=== PATIENT | male | born 1980 | race Caucasian/White ===

== ENCOUNTER 2024-12-21 01:12 | Day surgery (SDC) | payer BC, SELFPAY ==
[2024-12-11 15:02] VITALS: BMI 35.4
--- OUTSIDE RECORDS SUMMARY | 2024-12-21 01:15 | XMS_ITS | Clinical Summary ---
Author Organization [facility] [employer] Address [address] [place] [address] Care Team Providers Care Physical Laboratory Assistant Name Role Phone Luis Vance MD Primary Care Provider [phone] Source Comments [facility],non-owned Affiliates and Associated Physician Practices is amultiple site organization consisting of ambulatory clinics and hospital sitesin [place] and [place]. This disclosure is being madepursuant to the Care Everywhere program and may not contain all information available regarding this patient. Last updated 18.[facility] [employer] Allergies No known active allergies Medications * Be aware that medications may not be up to date on this document. Alwaysverify current medications with the patient. No known medications Active Problems No known active problems Family History Medical History Relation Name Comments Cancer - Other Father ADHD Neg Hx Allergies Neg Hx Aneurysm Neg Hx Asthma Neg Hx Autoimmune Disease Neg Hx Bipolar Disorder Neg Hx CVA<55(male) Neg Hx CVA<65(female) Neg Hx Cancer - Breast Neg Hx Cancer - Colon Neg Hx Cancer - Ovarian Neg Hx Cancer - Pancreatic Neg Hx Cancer - Prostate Neg Hx Childhood Hearing Disorder Neg Hx Clotting Disorder Neg Hx Depression Neg Hx Diabetes Neg Hx Eczema Neg Hx Genetic Neg Hx Heart defect Neg Hx Hypercholesterolemia Neg Hx Hypertension Neg Hx DE<55(male) Neg Hx DE<65(female) Neg Hx Mental Health Neg Hx Migraine Neg Hx Osteoporosis Neg Hx Seizures Neg Hx Sudd. <30 Neg Hx Thyroid Disease Neg Hx Ulcerative Colitis Neg Hx Relation Name Status Comments Father Social History Tobacco Use Types Packs/Day Years Used Date Smoking Tobacco: Never Sex and Gender Information Value Date Recorded Sex Assigned at Not on file Legal Sex Male 11:12 AM CDT Gender Identity Not on file Sexual Orientation Not on file Last Filed Vital Signs Vital Sign Reading Time Taken Comments Blood Pressure 110/72 02/22/2018 6:09 PM CDT Pulse 70 02/22/2018 6:09 PM CDT Temperature 36.7 C (98 F) 02/22/2018 6:09 PM CDT Respiratory Rate 20 02/22/2018 6:09 PM CDT Oxygen Saturation 98% 05/18/2016 11:59 AM CDT Inhaled Oxygen Concentration - - Weight 88.9 kg (196 lb) 02/22/2018 6:09 PM CDT Height 175.3 cm (5' 9) 05/18/2016 11:59 AM CDT Body Mass Index 28.94 05/18/2016 11:59 AM CDT Plan of Treatment Health Maintenance Due Date Last Done Comments COLOGUARD (AGES 45-75) - COL ON CA SCREENING 1979 COLON MONITORING 1979 COLONOSCOPY - COLON CA SCREENING 1979 CT COLONOGRAPHY - COLON CA SCREENING 1979 Colorectal Cancer Screening 1979 FIT - COLON CA SCREENING 1979 FLEX SIG - COLON CA SCREENING 1979 LIPID TESTING 1979 HIV SCREENING 1994 HEPATITIS C SCREENING 08/13/1997 DTAP/TDAP/TD VACCINES (1 - Tdap) 1998 HEPATITIS B VACCINE (1 of 3 - 19+ 3-dose series) 1998 COVID-19 VACCINE ( - 2023-2 5 season) 2024 DEPRESSION SCREENING 07/18/2024 INFLUENZA VACCINE (Season Ended) 2025 ZOSTER VACCINE (1 of 2) 2029 HIB VACCINE Aged Out No longer eligi ble based on patient's age to complete this topic HPV VACCINE Aged Out No longer eligi ble based on patient's age to complete this topic MENINGOCOCCAL (Group B) VACC INE SHARED DECISION-MAKING Aged Out No longer eligibl e based on patient's age to complete this topic MENINGOCOCCAL GROUPS A/C/Y/W VACCINE Aged Out No longer eligible b ased on patient's age to complete this topic PNEUMOCOCCAL VACCINE Aged Out No long er eligible based on patient's age to complete this topic Insurance [address] [place], [place] [id number] [place] [address] Care Teams Physical Laboratory Assistant Relationship Specialty Start Date End Date Luis Vance MD [address] [place] [id number] PCP - General Family Medicine 05/18/16
--- OUTSIDE RECORDS SUMMARY | 2024-12-21 01:15 | XMS_ITS | Data Portability ---
Author Organization [place] [facility], Main Office Address [address] [place] [address] Assessment No assessment recorded. Plan of Treatment Reminders Order Date Submit Date Provider Last Modified By Organization Details Last Modified Time Details Appointments None recorded. Lab CBC w/ auto diff 2022 023 [facility], [address], [place], [address], 3 03:00:59 PT/PTT, plasma 2022 023 [facility], [address], [place], [address], 3 03:00:53 CMP, serum or plasma 2022 023 [facility], [address], [place], [address], 3 03:00:57 TSH + free T4, serum 2022 023 [facility], [address], [place], [address], 3 03:00:56 lipid panel, serum 2022 023 [facility], [address], [place], [address], 3 03:00:56 PSA, serum or plasma 2022 023 [facility], [address], [place], [address], 3 03:01:00 testosteron e, total, serum 2022 023 [facility], [address], [place], [address], 3 03:01:00 HbA1c (hemoglobin A1c), blood 2022 023 [facility], [address], [place], [address], 3 03:00:58 Referral None recorded. Procedures None recorded. Surgeries None recorded. Imaging None recorded. Medication Orders phentermine 30 mg capsule 2022 023 [id number], [address], [place], [place], [id number], 3 12:09:51 topiramate 25 mg tablet 2022 023 [id number], [address], [place], [place], [id number], 3 12:09:53 phentermine 30 mg capsule 2022 023 [facility] #[id number], [address], [place], [place], [id number], 3 12:09:51 topiramate 25 mg tablet 2022 023 [facility] #[id number], [address], [place], [place], [id number], 3 12:09:53 Patient TargetsNo targets recorded. Patient InstructionsNo instructions recorded. Reason for Referral None Reported. Results Created Date Observation Date Name Description Value Unit Range Abnormal Flag Note LastModifiedBy Organization Detail LastModifiedTime 04/28/20 22 04/29/2022 PSA, TOTAL PSA, total 0.55 NG/mL < or = 4.00 normal The total PSA value from this assay syste m is stand ardiz ed again st the WHO stand kenneth. The test resul t will be appro ximat pamela 20% lower when cosmo red to the equim olar- stand ardiz ed total PSA (Crouch man Coult er). Cosmo rison of seria l PSA resul ts shoul d be inter prete d with this fact in mind. This test was perfo rmed using the Sieme ns chemi lumin escen t metho d. Value s obtai mary jane from diffe rent assay metho ds canno t be used inter benson eably . PSA level s, regar dless of value , shoul d not be inter prete d as absol poarch evide nce of the prese nce or absen ce of disea se. Not Available [address], [address], 04/29/2022 07:08:02 04/28/2004/29/2022 TESTO STERO NE, TOTAL , MALES (ADUL T), IA testosterone , total, males (adult), ia 653 NG/dL 250-82 7 normal Not Available [address], [address], 04/29/2022 07:08:01 04/28/20 22 04/29/2022 REFLE XIVE URINE CULTU RE reflexive urine culture NO CULTU RE INDIC ATED Not Available [address], [address], 04/29/2022 07:08:01 04/28/2004/29/2022 URINA LYSIS , COMPL ETE W/REF NOVA TO CULTU RE color yellow yellow normal Not Available [address], [address], 04/29/2022 07:08:00 04/28/20 22 04/29/2022 URINA LYSIS , COMPL ETE W/REF NOVA TO CULTU RE appearance clear clear normal Not Available [address], [address], 04/29/2022 07:08:00 04/28/2004/29/2022 URINA LYSIS , COMPL ETE W/REF NOVA TO CULTU RE specific gravity 1.023 1.001- 1.035 normal Not Available [address], [address], 04/29/2022 07:08:00 04/28/2004/29/2022 URINA LYSIS , COMPL ETE W/REF NOVA TO CULTU RE pH 7.0 5.0-8. 0 normal Not Available [address], [address], 04/29/2022 07:08:00 04/28/2004/29/2022 URINA LYSIS , COMPL ETE W/REF NOVA TO CULTU RE glucose negati ve negati ve normal Not Available [address], [address], 04/29/2022 07:08:00 04/28/2004/29/2022 URINA LYSIS , COMPL ETE W/REF NOVA TO CULTU RE bilirubin negati ve negati ve normal Not Available [address], [address], 04/29/2022 07:08:00 04/28/2004/29/2022 URINA LYSIS , COMPL ETE W/REF NOVA TO CULTU RE ketones negati ve negati ve normal Not Available [address], [address], 04/29/2022 07:08:00 04/28/2004/29/2022 URINA LYSIS , COMPL ETE W/REF NOVA TO CULTU RE occult blood negati ve negati ve normal Not Available [address], [address], 04/29/2022 07:08:00 04/28/20 22 04/29/2022 URINA LYSIS , COMPL ETE W/REF NOVA TO CULTU RE protein trace negati ve abnormal Not Available [address], [address], 04/29/2022 07:08:00 04/28/20 22 04/29/2022 URINA LYSIS , COMPL ETE W/REF NOVA TO CULTU RE nitrite negati ve negati ve normal Not Available [address], [address], 04/29/2022 07:08:00 04/28/2004/29/2022 URINA LYSIS , COMPL ETE W/REF NOVA TO CULTU RE leukocyte esterase negati ve negati ve normal Not Available [address], [address], 04/29/2022 07:08:00 04/28/2004/29/2022 URINA LYSIS , COMPL ETE W/REF NOVA TO CULTU RE WBC none seen /hpf < or = 5 normal Not Available [address], [address], 04/29/2022 07:08:00 04/28/2004/29/2022 URINA LYSIS , COMPL ETE W/REF NOVA TO CULTU RE RBC none seen /hpf < or = 2 normal Not Available [address], [address], 04/29/2022 07:08:00 04/28/2004/29/2022 URINA LYSIS , COMPL ETE W/REF NOVA TO CULTU RE squamous epithelial cells none seen /hpf < or = 5 normal Not Available [address], [address], 04/29/2022 07:08:00 04/28/2004/29/2022 URINA LYSIS , COMPL ETE W/REF NOVA TO CULTU RE bacteria none seen /hpf none seen normal Not Available [address], [address], 04/29/2022 07:08:00 04/28/2004/29/2022 URINA LYSIS , COMPL ETE W/REF NOVA TO CULTU RE hyaline cast none seen /lpf none seen normal Not Available [address], [address], 04/29/2022 07:08:00 04/28/2004/29/2022 CBC (INCL UDES DIFF/ PLT) white blood cell count 4.7 thous and/u L 3.8-10 .8 normal Not Available [address], [address], 04/29/2022 07:07:59 04/28/2004/29/2022 CBC (INCL UDES DIFF/ PLT) red blood cell count 5.41 presley on/uL 4.20-5 .80 normal Not Available [address], [address], 04/29/2022 07:07:59 04/28/2004/29/2022 CBC (INCL UDES DIFF/ PLT) hemoglobin 16.5 g/dL 13.2-1 7.1 normal Not Available [address], [address], 04/29/2022 07:07:59 04/28/2004/29/2022 CBC (INCL UDES DIFF/ PLT) hematocrit 47.6 % 38.5-5 0.0 normal Not Available [address], [address], 04/29/2022 07:07:59 04/28/2004/29/2022 CBC (INCL UDES DIFF/ PLT) MCV 88.0 fL 80.0-1 00.0 normal Not Available [address], [address], 04/29/2022 07:07:59 04/28/2004/29/2022 CBC (INCL UDES DIFF/ PLT) MCH 30.5 pg 27.0-3 3.0 normal Not Available [address], [address], 04/29/2022 07:07:59 04/28/2004/29/2022 CBC (INCL UDES DIFF/ PLT) MCHC 34.7 g/dL 32.0-3 6.0 normal Not Available [address], [address], 04/29/2022 07:07:59 04/28/2004/29/2022 CBC (INCL UDES DIFF/ PLT) RDW 13.1 % 11.0-1 5.0 normal Not Available [address], [address], 04/29/2022 07:07:59 04/28/2004/29/2022 CBC (INCL UDES DIFF/ PLT) platelet count 223 thous and/u L 140-40 0 normal Not Available [address], [address], 04/29/2022 07:07:59 04/28/2004/29/2022 CBC (INCL UDES DIFF/ PLT) MPV 10.7 fL 7.5-12 .5 normal Not Available [address], [address], 04/29/2022 07:07:59 04/28/2004/29/2022 CBC (INCL UDES DIFF/ PLT) absolute neutrophils 2200 cells /uL 1500-7 800 normal Not Available [address], [address], 04/29/2022 07:07:59 04/28/2004/29/2022 CBC (INCL UDES DIFF/ PLT) absolute lymphocytes 1739 cells /uL 850-39 00 normal Not Available [address] [place], [address], 04/29/2022 07:07:59 04/28/2004/29/2022 CBC (INCL UDES DIFF/ PLT) absolute monocytes 470 cells /uL 200-95 0 normal Not Available [address], [address], 04/29/2022 07:07:59 04/28/2004/29/2022 CBC (INCL UDES DIFF/ PLT) absolute eosinophils 240 cells /uL 15-500 normal Not Available [address] [address] [place], [address], 04/29/2022 07:07:59 04/28/2004/29/2022 CBC (INCL UDES DIFF/ PLT) absolute basophils 52 cells /uL 0-200 normal Not Available [address], [address], 04/29/2022 07:07:59 04/28/2004/29/2022 CBC (INCL UDES DIFF/ PLT) neutrophils 46.8 % normal Not Available [address], [address], 04/29/2022 07:07:59 04/28/2004/29/2022 CBC (INCL UDES DIFF/ PLT) lymphocytes 37.0 % normal Not Available [facility] [address] [address] [place], [address], 04/29/2022 07:07:59 04/28/2004/29/2022 CBC (INCL UDES DIFF/ PLT) monocytes 10.0 % normal Not Available [facility] [address] [address] [place], [address], 04/29/2022 07:07:59 04/28/2004/29/2022 CBC (INCL UDES DIFF/ PLT) eosinophils 5.1 % normal Not Available [facility] [address] [address] [place], [address], 04/29/2022 07:07:59 04/28/20 22 04/29/2022 CBC (INCL UDES DIFF/ PLT) basophils 1.1 % normal Not Available [facility] [address] [address] [place], [address], 04/29/2022 07:07:59 04/28/2004/29/2022 HEMOG LOBIN A1C hemoglobin A1C 5.0 %_of_ total _HGB <5.7 normal For the purpo se of screartie willett for the prese nce of diabe danny: <5.7% Consi stent with the absen ce of diabe danny 5.7-6 .4% Consi stent with incre ased risk for diabe danny (pred iabet es) > or =6.5% Consi stent with diabe danny This assay resul t is consi stent with a decre ased risk of diabe danny. Curre ntly, no conse nsus exist s regar helen use of hemog lobin A1c for diagn osis of diabe danny in child lewis. Accor ding to Ameri can Diabe danny Assoc iatio n (ADA) guide lines , hemog lobin A1c <7.0% repre sents optim al contr ol in non-p regna nt diabe tic patie nts. Diffe rent metri cs may apply to speci fic patie nt popul ation s. Stand ards of Medic al Care in Diabe danny(A DA). Not Available [facility] [address] [place], [address], 04/29/2022 07:07:59 04/28/2004/29/2022 COMPR EHENS GEETA METAB OLIC PANEL glucose 79 mg/dL 65-99 normal Fasti ng refer ence inter rima Not Available [facility] [address] [place], [address], 04/29/2022 07:07:58 04/28/20 22 04/29/2022 COMPR EHENS GEETA METAB OLIC PANEL urea nitrogen (BUN) 15 mg/dL 7-25 normal Not Available [address], [address], 04/29/2022 07:07:58 04/28/20 22 04/29/2022 COMPR EHENS GEETA METAB OLIC PANEL creatinine 1.14 mg/dL 0.60-1 .29 normal Not Available [address], [address], 04/29/2022 07:07:58 04/28/2004/29/2022 COMPR EHENS GEETA METAB OLIC PANEL eGFR 82 mL/mi n/1.7 3m2 > or = 60 normal The eGFR is based on the CKD-E PI 2020 equat ion. To calcu late the new eGFR from a previ ous Creat inine or Cysta tin C resul t, go to https ://santi [email or web address] [email or web address] daniel/fernanda carr s/ kdoqi /gfr% 5Fcal culat or Not Available [address], [address], 04/29/2022 07:07:58 04/28/20 22 04/29/2022 COMPR EHENS GEETA METAB OLIC PANEL BUN/creatini ne ratio not applic able (calc ) 6-22 Not Available [address], [address], 04/29/2022 07:07:58 04/28/2004/29/2022 COMPR EHENS GEETA METAB OLIC PANEL sodium 137 mmol/ L 135-14 6 normal Not Available [address], [address], 04/29/2022 07:07:58 04/28/20 22 04/29/2022 COMPR EHENS GEETA METAB OLIC PANEL potassium 4.4 mmol/ L 3.5-5. 3 normal Not Available [address] [address] [place], [address], 04/29/2022 07:07:58 04/28/2004/29/2022 COMPR EHENS GEETA METAB OLIC PANEL chloride 102 mmol/ L 98-110 normal Not Available [address], [address], 04/29/2022 07:07:58 04/28/2004/29/2022 COMPR EHENS GEETA METAB OLIC PANEL carbon dioxide 29 mmol/ L 20-32 normal Not Available [address], [address], 04/29/2022 07:07:58 04/28/2004/29/2022 COMPR EHENS GEETA METAB OLIC PANEL calcium 9.4 mg/dL 8.6-10 .3 normal Not Available [address], [address], 04/29/2022 07:07:58 04/28/2004/29/2022 COMPR EHENS GEETA METAB OLIC PANEL protein, total 7.3 g/dL 6.1-8. 1 normal Not Available [address], [address], 04/29/2022 07:07:58 04/28/2004/29/2022 COMPR EHENS GEETA METAB OLIC PANEL albumin 4.6 g/dL 3.6-5. 1 normal Not Available [address] [place], [address], 04/29/2022 07:07:58 04/28/2004/29/2022 COMPR EHENS GEETA METAB OLIC PANEL globulin 2.7 g/dL_ (calc ) 1.9-3. 7 normal Not Available [address] [place], [address], 04/29/2022 07:07:58 04/28/20 22 04/29/2022 COMPR EHENS GEETA METAB OLIC PANEL albumin/glob ulin ratio 1.7 (calc ) 1.0-2. 5 normal Not Available [address], [address], 04/29/2022 07:07:58 04/28/20 22 04/29/2022 COMPR EHENS GEETA METAB OLIC PANEL bilirubin, total 0.6 mg/dL 0.2-1. 2 normal Not Available [address], [address], 04/29/2022 07:07:58 04/28/2004/29/2022 COMPR EHENS GEETA METAB OLIC PANEL alkaline phosphatase 57 U/L 36-130 normal Not Available [address], [address], 04/29/2022 07:07:58 04/28/20 22 04/29/2022 COMPR EHENS GEETA METAB OLIC PANEL AST 23 U/L 10-40 normal Not Available [address], [address], 04/29/2022 07:07:58 04/28/20 22 04/29/2022 COMPR EHENS GEETA METAB OLIC PANEL ALT 36 U/L 9-46 normal Not Available [address], [address], 04/29/2022 07:07:58 04/28/20 22 04/29/2022 LIPID PANEL WITH RATIO S cholesterol, total 268 mg/dL <200 high Not Available [address], [address], 04/29/2022 07:07:58 04/28/20 22 04/29/2022 LIPID PANEL WITH RATIO S HDL cholesterol 53 mg/dL > or = 40 normal Not Available [address], [address], 04/29/2022 07:07:58 04/28/20 22 04/29/2022 LIPID PANEL WITH RATIO S triglyceride s 127 mg/dL <150 normal Not Available [address], [address], 04/29/2022 07:07:58 04/28/20 22 04/29/2022 LIPID PANEL WITH RATIO S LDL-choleste rol 189 mg/dL _(reyes c) high Refer ence range : <100 Brigette able range <100 mg/dL for prima ry preve ntion ; <70 mg/dL for patie nts with CHD or diabe tic patie nts with > or = 2 CHD risk facto rs. LDL-C is now calcu lated using the Narcisa n-Hop kins calcu cayden n, which is a valid ated novel lorna severino r accur acy than the Fried roberto equat ion in the estim ation of LDL-C . Narcisa waldrop SS et al. RACHEL. 2013; 310(1 9): 2061- 2068 (http ://ed ucati on.Qu danteThe [employer]. com/f aq/FA Q164) Not Available [address], [address], 04/29/2022 07:07:58 04/28/20 22 04/29/2022 LIPID PANEL WITH RATIO S chol/HDLC ratio 5.1 (calc ) <5.0 high Not Available [address], [address], 04/29/2022 07:07:58 04/28/2004/29/2022 LIPID PANEL WITH RATIO S LDL/HDL ratio 3.6 (calc ) Below [place] ge Risk: <2.28 [place] ge Risk: 2.29- 4.90 Moder ate Risk: 4.91- 7.12 High Risk: >7.13 Not Available [address], [address], 04/29/2022 07:07:58 04/28/2004/29/2022 LIPID PANEL WITH RATIO S non HDL cholesterol 215 mg/dL _(reyes c) <130 high For patie nts with diabe danny plus 1 major ASCVD risk facto r, treat ing to a non-H DL-C goal of <100 mg/dL (LDL- C of <70 mg/dL ) is consi dered a thera peuti c optio n. Not Available [address] [address] [place], [address], 04/29/2022 07:07:58 04/28/2004/29/2022 TSH+F REE T4 TSH 1.44 mIU/L 0.40-4 .50 normal Not Available [facility] [address] [address] [place], [address], 04/29/2022 07:07:57 04/28/2004/29/2022 TSH+F REE T4 T4, free 1.1 NG/dL 0.8-1. 8 normal Not Available [facility] [address] [address] [place], [address], 04/29/2022 07:07:57 01/29/2001/29/2023 PROTH ROMBI N W/INR + PARTI AL THROM BOPLA STIN TIMES partial thromboplast in time, activated 29 sec 23-32 normal This test has not been valid ated for monit oring unfra ction ated hepar in thera py. For testi ng that is valid ated for this type of thera py, argenis e refer to the Hepar in Anti- Xa assay (test code 27564 ). For addit ional argenis bello refer to http: //hailey ivanQue stDia gnost ics.c om/fa q/FAQ 159 (This link is being provi ded for jonathon olvera nal/e goldie ionmarciano purpo ses only. ) Not Available [address] [address] [place], [address], 01/29/2023 03:00:53 01/29/20 23 01/29/2023 PROTH ROMBI N W/INR + PARTI AL THROM BOPLA STIN TIMES INR 1.0 normal Refer ence Range 0.9-1 .1 Moder ate-i ntens ity Warfa rin Thera py 2.0-3 .0 Highe r-int ensit y Warfa rin Thera py 3.0-4 .0 Not Available [address], [address], 01/29/2023 03:00:53 01/29/20 23 01/29/2023 PROTH ROMBI N W/INR + PARTI AL THROM BOPLA STIN TIMES PT 10.5 sec 9.0-11 .5 normal Not Available [address], [address], 01/29/2023 03:00:53 01/29/20 23 01/29/2023 TSH+F REE T4 TSH 1.69 mIU/L 0.40-4 .50 normal Not Available [address], [address], 01/29/2023 03:00:55 01/29/20 23 01/29/2023 TSH+F REE T4 T4, free 1.2 NG/dL 0.8-1. 8 normal Not Available [address], [address], 01/29/2023 03:00:55 01/29/20 23 01/29/2023 LIPID PANEL WITH RATIO S cholesterol, total 219 mg/dL <200 high Not Available [address], [address], 01/29/2023 03:00:56 01/29/20 23 01/29/2023 LIPID PANEL WITH RATIO S HDL cholesterol 46 mg/dL > or = 40 normal Not Available [address], [address], 01/29/2023 03:00:56 01/29/20 23 01/29/2023 LIPID PANEL WITH RATIO S triglyceride s 127 mg/dL <150 normal Not Available [address], [address], 01/29/2023 03:00:56 01/29/20 23 01/29/2023 LIPID PANEL WITH RATIO S LDL-choleste rol 148 mg/dL _(reyes c) high Refer ence range : <100 Brigette able range <100 mg/dL for prima ry preve ntion ; <70 mg/dL for patie nts with CHD or diabe tic patie nts with > or = 2 CHD risk facto rs. LDL-C is now calcu lated using the Narcisa n-Hop kins calcu latrodrigo n, which is a valid ated novel michelleo d marcelo cervantes maycol r accur acy than the Fried roberto equat ion in the estim ation of LDL-C . Narcisa waldrop SS et al. RACHEL. 2013; 310(1 9): 2061- 2068 (http ://ed ucati on.Qu estThe [employer] com/f aq/FA Q164) Not Available [address], [place], [address], 01/29/2023 03:00:56 01/29/20 23 01/29/2023 LIPID PANEL WITH RATIO S chol/HDLC ratio 4.8 (calc ) <5.0 normal Not Available [address], [address], 01/29/2023 03:00:56 01/29/2001/29/2023 LIPID PANEL WITH RATIO S LDL/HDL ratio 3.2 (calc ) Below [place] ge Risk: <2.28 [place] ge Risk: 2.29- 4.90 Moder ate Risk: 4.91- 7.12 High Risk: >7.13 Not Available [address], [address], 01/29/2023 03:00:56 01/29/20 23 01/29/2023 LIPID PANEL WITH RATIO S non HDL cholesterol 173 mg/dL _(reyes c) <130 high For patie nts with diabe danny plus 1 major ASCVD risk facto r, treat ing to a non-H DL-C goal of <100 mg/dL (LDL- C of <70 mg/dL ) is consi dered a thera peuti c optio n. Not Available [address] [address] [place], [address], 01/29/2023 03:00:56 01/29/2001/29/2023 COMPR EHENS GEETA METAB OLIC PANEL glucose 88 mg/dL 65-99 normal Fasti ng refer ence inter rima Not Available [address] [address] [place], [address], 01/29/2023 03:00:57 01/29/20 23 01/29/2023 COMPR EHENS GEETA METAB OLIC PANEL urea nitrogen (BUN) 13 mg/dL 7-25 normal Not Available [address] [address] [place], [address], 01/29/2023 03:00:57 01/29/20 23 01/29/2023 COMPR EHENS GEETA METAB OLIC PANEL creatinine 1.22 mg/dL 0.60-1 .29 normal Not Available [address] [address] [place], [address], 01/29/2023 03:00:57 01/29/20 23 01/29/2023 COMPR EHENS GEETA METAB OLIC PANEL eGFR 75 mL/mi n/1.7 3m2 > or = 60 normal The eGFR is based on the CKD-E PI 2020 equat ion. To calcu late the new eGFR from a previ ous Creat inine or Cysta tin C resul t, go to https ://santi temple.[email or web address] ga.o daniel/fernanda carr s/ kdoqi /gfr% 5Fcal culat or Not Available [address], [address], 01/29/2023 03:00:57 01/29/2001/29/2023 COMPR EHENS GEETA METAB OLIC PANEL BUN/creatini ne ratio NOT APPLIC ABLE (calc ) 6-22 Not Available [address], [address], 01/29/2023 03:00:57 01/29/20 23 01/29/2023 COMPR EHENS GEETA METAB OLIC PANEL sodium 138 mmol/ L 135-14 6 normal Not Available [address], [address], 01/29/2023 03:00:57 01/29/2001/29/2023 COMPR EHENS GEETA METAB OLIC PANEL potassium 4.4 mmol/ L 3.5-5. 3 normal Not Available [address], [address], 01/29/2023 03:00:57 01/29/2001/29/2023 COMPR EHENS GEETA METAB OLIC PANEL chloride 105 mmol/ L 98-110 normal Not Available [address], [address], 01/29/2023 03:00:57 01/29/20 23 01/29/2023 COMPR EHENS GEETA METAB OLIC PANEL carbon dioxide 25 mmol/ L 20-32 normal Not Available [address], [address], 01/29/2023 03:00:57 01/29/2001/29/2023 COMPR EHENS GEETA METAB OLIC PANEL calcium 9.6 mg/dL 8.6-10 .3 normal Not Available [address], [address], 01/29/2023 03:00:57 01/29/20 23 01/29/2023 COMPR EHENS GEETA METAB OLIC PANEL protein, total 7.5 g/dL 6.1-8. 1 normal Not Available [address], [address], 01/29/2023 03:00:57 01/29/20 23 01/29/2023 COMPR EHENS GEETA METAB OLIC PANEL albumin 4.7 g/dL 3.6-5. 1 normal Not Available [address], [address], 01/29/2023 03:00:57 01/29/2001/29/2023 COMPR EHENS GEETA METAB OLIC PANEL globulin 2.8 g/dL_ (calc ) 1.9-3. 7 normal Not Available [address], [address], 01/29/2023 03:00:57 01/29/2001/29/2023 COMPR EHENS GEETA METAB OLIC PANEL albumin/glob ulin ratio 1.7 (calc ) 1.0-2. 5 normal Not Available [address], [address], 01/29/2023 03:00:57 01/29/2001/29/2023 COMPR EHENS GEETA METAB OLIC PANEL bilirubin, total 0.7 mg/dL 0.2-1. 2 normal Not Available [address], [address], 01/29/2023 03:00:57 01/29/20 23 01/29/2023 COMPR EHENS GEETA METAB OLIC PANEL alkaline phosphatase 61 U/L 36-130 normal Not Available [facility] [employer] [address], [address], 01/29/2023 03:00:57 01/29/20 23 01/29/2023 COMPR EHENS GEETA METAB OLIC PANEL AST 15 U/L 10-40 normal Not Available [address] [address] [place], [address], 01/29/2023 03:00:57 01/29/2001/29/2023 COMPR EHENS GEETA METAB OLIC PANEL ALT 18 U/L 9-46 normal Not Available [facility] [address] [place], [address], 01/29/2023 03:00:57 01/29/2001/29/2023 HEMOG LOBIN A1C hemoglobin A1C 4.8 %_of_ total _HGB <5.7 normal For the purpo se of scree brennon for the prese nce of diabe danny: <5.7% Consi stent with the absen ce of diabe danny 5.7-6 .4% Consi stent with incre ased risk for diabe danny (pred iabet es) > or =6.5% Consi stent with diabe danny This assay resul t is consi stent with a decre ased risk of diabe danny. Curre ntly, no conse nsus exist s betty cervantes use of hemog lobin A1c for diagn osis of diabe danny in child lewis. Accor ding to [employer] can [employer] danny [employer] i[employer] n (ADA) guide lines , hemog lobin A1c <7.0% repre sents optim al contr ol in non-p regna nt diabe tic patie nts. Diffe rent metri cs may apply to speci fic patie nt popul ation s. Stand ards of Medic al Care in Diabe danny(A DA). Not Available [facility] [address] [place], [address], 01/29/2023 03:00:58 01/29/2001/29/2023 CBC (INCL UDES DIFF/ PLT) white blood cell count 4.8 thous and/u L 3.8-10 .8 normal Not Available [facility] [address] [place], [address], 01/29/2023 03:00:59 01/29/2001/29/2023 CBC (INCL UDES DIFF/ PLT) red blood cell count 5.36 presley on/uL 4.20-5 .80 normal Not Available [address], [address], 01/29/2023 03:00:59 01/29/2001/29/2023 CBC (INCL UDES DIFF/ PLT) hemoglobin 16.1 g/dL 13.2-1 7.1 normal Not Available [address], [address], 01/29/2023 03:00:59 01/29/2001/29/2023 CBC (INCL UDES DIFF/ PLT) hematocrit 47.1 % 38.5-5 0.0 normal Not Available [address], [address], 01/29/2023 03:00:59 01/29/2001/29/2023 CBC (INCL UDES DIFF/ PLT) MCV 87.9 fL 80.0-1 00.0 normal Not Available [address], [address], 01/29/2023 03:00:59 01/29/2001/29/2023 CBC (INCL UDES DIFF/ PLT) MCH 30.0 pg 27.0-3 3.0 normal Not Available [address], [address], 01/29/2023 03:00:59 01/29/2001/29/2023 CBC (INCL UDES DIFF/ PLT) MCHC 34.2 g/dL 32.0-3 6.0 normal Not Available [address], [address], 01/29/2023 03:00:59 01/29/2001/29/2023 CBC (INCL UDES DIFF/ PLT) RDW 13.3 % 11.0-1 5.0 normal Not Available [facility] [address], [place], [address], 01/29/2023 03:00:59 01/29/2001/29/2023 CBC (INCL UDES DIFF/ PLT) platelet count 244 thous and/u L 140-40 0 normal Not Available [address], [address], 01/29/2023 03:00:59 01/29/20 23 01/29/2023 CBC (INCL UDES DIFF/ PLT) MPV 11.2 fL 7.5-12 .5 normal Not Available [address], [address], 01/29/2023 03:00:59 01/29/2001/29/2023 CBC (INCL UDES DIFF/ PLT) absolute neutrophils 2707 cells /uL 1500-7 800 normal Not Available [address], [address], 01/29/2023 03:00:59 01/29/2001/29/2023 CBC (INCL UDES DIFF/ PLT) absolute lymphocytes 1522 cells /uL 850-39 00 normal Not Available [address], [address], 01/29/2023 03:00:59 01/29/2001/29/2023 CBC (INCL UDES DIFF/ PLT) absolute monocytes 466 cells /uL 200-95 0 normal Not Available [address], [address], 01/29/2023 03:00:59 01/29/2001/29/2023 CBC (INCL UDES DIFF/ PLT) absolute eosinophils 58 cells /uL 15-500 normal Not Available [facility] [address], [address], 01/29/2023 03:00:59 01/29/2001/29/2023 CBC (INCL UDES DIFF/ PLT) absolute basophils 48 cells /uL 0-200 normal Not Available [address], [address], 01/29/2023 03:00:59 01/29/2001/29/2023 CBC (INCL UDES DIFF/ PLT) neutrophils 56.4 % normal Not Available [address], [address], 01/29/2023 03:00:59 01/29/2001/29/2023 CBC (INCL UDES DIFF/ PLT) lymphocytes 31.7 % normal Not Available [address], [address], 01/29/2023 03:00:59 01/29/2001/29/2023 CBC (INCL UDES DIFF/ PLT) monocytes 9.7 % normal Not Available [address], [address], 01/29/2023 03:00:59 01/29/2001/29/2023 CBC (INCL UDES DIFF/ PLT) eosinophils 1.2 % normal Not Available [address], [address], 01/29/2023 03:00:59 01/29/2001/29/2023 CBC (INCL UDES DIFF/ PLT) basophils 1.0 % normal Not Available [address], [address], 01/29/2023 03:00:59 01/29/2001/29/2023 TESTO STERO NE, TOTAL , MALES (ADUL T), IA testosterone , total, males (adult), ia 488 NG/dL 250-82 7 normal Not Available [address], [address], 01/29/2023 03:01:00 01/29/2006 0201/29/2023 PSA, TOTAL PSA, total 0.51 NG/mL < or = 4.00 normal The total PSA value from this assay syste m is stand ardiz ed again st the WHO stand kenneth. The test resul t will be appro ximat pamela 20% lower when cosmo red to the equim olar- stand ardiz ed total PSA (Crouch man Coult er). Cosmo rison of seria l PSA resul ts shoul d be inter prete d with this fact in mind. This test was perfo rmed using the [employer]Edge chemi lumin escen t metho d. Value s obtai mary jane from diffe rent assay metho ds canno t be used inter benson eably . PSA level s, regar dless of value , shoul d not be inter prete d as absol poarch evide nce of the prese nce or absen ce of disea se. Not Available [facility] [address] [place], [address], 01/29/2023 03:01:00 06/02/20 23 06/06/2023 PROTH ROMBI N W/INR + PARTI AL THROM BOPLA STIN TIMES partial thromboplast in time, activated 28 sec 23-32 normal This test has not been valid ated for monit oring unfra ction ated hepar in thera py. For testi ng that is valid ated for this type of thera py, argenis e refer to the Hepar in Anti- Xa assay (test code 58420 ). For addit ional infor argenis ballard refer to http: //[facility] vijay waldrop.Kota stDia gnost ics.c om/fa q/FAQ 159 (This link is being provi ded for infor wade nal/e ellenat ional purpo ses only. ) Not Available [employer] [facility] [address] [place], [address], 06/06/2023 13:20:58 06/02/2006/06/2023 PROTH ROMBI N W/INR + PARTI AL THROM BOPLA STIN TIMES INR 0.9 normal Refer ence Range 0.9-1 .1 Moder ate-i ntens ity Warfa rin Thera py 2.0-3 .0 Highe r-int ensit y Warfa rin Thera py 3.0-4 .0 Not Available [address], [address], 06/06/2023 13:20:58 06/02/20 23 06/06/2023 PROTH ROMBI N W/INR + PARTI AL THROM BOPLA STIN TIMES PT 10.1 sec 9.0-11 .5 normal Not Available [address], [address], 06/06/2023 13:20:58 06/02/20 23 06/06/2023 TSH+F REE T4 TSH 1.48 mIU/L 0.40-4 .50 normal Not Available [address], [address], 06/06/2023 13:20:58 06/02/20 23 06/06/2023 TSH+F REE T4 T4, free 1.0 NG/dL 0.8-1. 8 normal Not Available [address], [address], 06/06/2023 13:20:58 06/02/20 23 06/06/2023 LIPID PANEL WITH RATIO S cholesterol, total 201 mg/dL <200 high Not Available [address], [address], 06/06/2023 13:20:58 06/02/20 23 06/06/2023 LIPID PANEL WITH RATIO S HDL cholesterol 46 mg/dL > or = 40 normal Not Available [address], [address], 06/06/2023 13:20:58 06/02/20 23 06/06/2023 LIPID PANEL WITH RATIO S triglyceride s 76 mg/dL <150 normal Not Available [address], [address], 06/06/2023 13:20:58 06/02/2006/06/2023 LIPID PANEL WITH RATIO S LDL-choleste rol 138 mg/dL _(reyes c) high Refer ence range : <100 Brigette able range <100 mg/dL for prima ry preve ntion ; <70 mg/dL for patie nts with CHD or diabe tic patie nts with > or = 2 CHD risk facto rs. LDL-C is now calcu lated using the Narcisa n-Hop kins calcu latrodrigo n, which is a valid ated novel lorna cardenas accur acjohana than the Fried roberto equat ion in the estim ation of LDL-C . Narcisa waldrop SS et al. RACHEL. 2013; 310(1 9): 2061- 2068 (http ://ed ucati on.Qu danteThe [employer]inters [employer]. com/f aq/FA Q164) Not Available [address], [address], 06/06/2023 13:20:58 06/02/20 23 06/06/2023 LIPID PANEL WITH RATIO S chol/HDLC ratio 4.4 (calc ) <5.0 normal Not Available [address], [address], 06/06/2023 13:20:58 06/02/20 23 06/06/2023 LIPID PANEL WITH RATIO S LDL/HDL ratio 3.0 (calc ) Below [place] ge Risk: <2.28 [place] ge Risk: 2.29- 4.90 Moder ate Risk: 4.91- 7.12 High Risk: >7.13 Not Available [address], [address], 06/06/2023 13:20:58 06/02/20 23 06/06/2023 LIPID PANEL WITH RATIO S non HDL cholesterol 155 mg/dL _(reyes c) <130 high For patie nts with diabe danny plus 1 major ASCVD risk facto r, treat ing to a non-H DL-C goal of <100 mg/dL (LDL- C of <70 mg/dL ) is pedro carrollo n. Not Available [address] [address] [place], [address], 06/06/2023 13:20:58 06/02/20 23 06/06/2023 COMPR EHENS GEETA METAB OLIC PANEL glucose 86 mg/dL 65-99 normal Fasti ng refer ence inter rima Not Available [address] [address] [place], [address], 06/06/2023 13:20:59 06/02/20 23 06/06/2023 COMPR EHENS GEETA METAB OLIC PANEL urea nitrogen (BUN) 12 mg/dL 7-25 normal Not Available [address] [address] [place], [address], 06/06/2023 13:20:59 06/02/20 23 06/06/2023 COMPR EHENS GEETA METAB OLIC PANEL creatinine 1.08 mg/dL 0.60-1 .29 normal Not Available [address], [address], 06/06/2023 13:20:59 06/02/20 23 06/06/2023 COMPR EHENS GEETA METAB OLIC PANEL eGFR 87 mL/mi n/1.7 3m2 > or = 60 normal Not Available [address] [address] [place], [address], 06/06/2023 13:20:59 06/02/20 23 06/06/2023 COMPR EHENS GEETA METAB OLIC PANEL BUN/creatini ne ratio SEE NOTE: (calc ) 6-22 Not Repor josiah: BUN and Creat inine are withi n refer ence range . Not Available [address] [address] [place], [address], 06/06/2023 13:20:59 06/02/20 23 06/06/2023 COMPR EHENS GEETA METAB OLIC PANEL sodium 138 mmol/ L 135-14 6 normal Not Available [address], [address], 06/06/2023 13:20:59 06/02/20 23 06/06/2023 COMPR EHENS GEETA METAB OLIC PANEL potassium 4.5 mmol/ L 3.5-5. 3 normal Not Available [address], [address], 06/06/2023 13:20:59 06/02/20 23 06/06/2023 COMPR EHENS GEETA METAB OLIC PANEL chloride 108 mmol/ L 98-110 normal Not Available [address], [address], 06/06/2023 13:20:59 06/02/20 23 06/06/2023 COMPR EHENS GEETA METAB OLIC PANEL carbon dioxide 26 mmol/ L 20-32 normal Not Available [address], [address], 06/06/2023 13:20:59 06/02/20 23 06/06/2023 COMPR EHENS GEETA METAB OLIC PANEL calcium 9.1 mg/dL 8.6-10 .3 normal Not Available [address], [address], 06/06/2023 13:20:59 06/02/20 23 06/06/2023 COMPR EHENS GEETA METAB OLIC PANEL protein, total 7.0 g/dL 6.1-8. 1 normal Not Available [address], [address], 06/06/2023 13:20:59 06/02/20 23 06/06/2023 COMPR EHENS GEETA METAB OLIC PANEL albumin 4.3 g/dL 3.6-5. 1 normal Not Available [address] [address] [place], [address], 06/06/2023 13:20:59 06/02/20 23 06/06/2023 COMPR EHENS GEETA METAB OLIC PANEL globulin 2.7 g/dL_ (calc ) 1.9-3. 7 normal Not Available [address] [address] [place], [address], 06/06/2023 13:20:59 06/02/20 23 06/06/2023 COMPR EHENS GEETA METAB OLIC PANEL albumin/glob ulin ratio 1.6 (calc ) 1.0-2. 5 normal Not Available [address], [address], 06/06/2023 13:20:59 06/02/20 23 06/06/2023 COMPR EHENS GEETA METAB OLIC PANEL bilirubin, total 0.5 mg/dL 0.2-1. 2 normal Not Available [address] [address] [place], [address], 06/06/2023 13:20:59 06/02/20 23 06/06/2023 COMPR EHENS GEETA METAB OLIC PANEL alkaline phosphatase 54 U/L 36-130 normal Not Available [address] [address] [place], [address], 06/06/2023 13:20:59 06/02/20 23 06/06/2023 COMPR EHENS GEETA METAB OLIC PANEL AST 14 U/L 10-40 normal Not Available [address] [address] [place], [address], 06/06/2023 13:20:59 06/02/20 23 06/06/2023 COMPR EHENS GEETA METAB OLIC PANEL ALT 14 U/L 9-46 normal Not Available [address] [address] [place], [address], 06/06/2023 13:20:59 06/02/20 23 06/06/2023 HEMOG LOBIN A1C hemoglobin A1C 5.0 %_of_ total _HGB <5.7 normal For the purpo se of johnnie willett for the prese nce of diabe danny: <5.7% Consi stent with the absen ce of diabe danny 5.7-6 .4% Consi stent with incre ased risk for diabe danny (pred iabet es) > or =6.5% Consi stent with diabe danny This assay resul t is consi stent with a decre ased risk of diabe danny. Curre ntly, no conse nsus exist s betty cervantes use of hemog lobin A1c for diagn osis of diabe danny in child lewis. Accor ding to Ameri can Diabe danny Assoc iatio n (ADA) guide lines , hemog lobin A1c <7.0% repre sents optim al contr ol in non-p regna nt diabe tic patie nts. Diffe rent metri cs may apply to speci fic patie nt popul ation s. Stand ards of Medic al Care in Diabe danny(A DA). Not Available [facility] [place] [address] [place], [address], 06/06/2023 13:20:59 06/02/20 23 06/06/2023 CBC (INCL UDES DIFF/ PLT) white blood cell count 3.8 thous and/u L 3.8-10 .8 normal Not Available [facility] [place] [address] [place], [address], 06/06/2023 13:21:00 06/02/20 23 06/06/2023 CBC (INCL UDES DIFF/ PLT) red blood cell count 5.18 presley on/uL 4.20-5 .80 normal Not Available [facility] [address] [place], [address], 06/06/2023 13:21:00 06/02/20 23 06/06/2023 CBC (INCL UDES DIFF/ PLT) hemoglobin 15.2 g/dL 13.2-1 7.1 normal Not Available [address], [address], 06/06/2023 13:21:00 06/02/2006/06/2023 CBC (INCL UDES DIFF/ PLT) hematocrit 45.8 % 38.5-5 0.0 normal Not Available [address], [address], 06/06/2023 13:21:00 06/02/2006/06/2023 CBC (INCL UDES DIFF/ PLT) MCV 88.4 fL 80.0-1 00.0 normal Not Available [address], [address], 06/06/2023 13:21:00 06/02/20 23 06/06/2023 CBC (INCL UDES DIFF/ PLT) MCH 29.3 pg 27.0-3 3.0 normal Not Available [address], [address], 06/06/2023 13:21:00 06/02/20 23 06/06/2023 CBC (INCL UDES DIFF/ PLT) MCHC 33.2 g/dL 32.0-3 6.0 normal Not Available [address], [address], 06/06/2023 13:21:00 06/02/20 23 06/06/2023 CBC (INCL UDES DIFF/ PLT) RDW 13.4 % 11.0-1 5.0 normal Not Available [address], [address], 06/06/2023 13:21:00 06/02/20 23 06/06/2023 CBC (INCL UDES DIFF/ PLT) platelet count 242 thous and/u L 140-40 0 normal Not Available [address], [address], 06/06/2023 13:21:00 06/02/20 23 06/06/2023 CBC (INCL UDES DIFF/ PLT) MPV 11.1 fL 7.5-12 .5 normal Not Available [address], [address], 06/06/2023 13:21:00 06/02/20 23 06/06/2023 CBC (INCL UDES DIFF/ PLT) absolute neutrophils 1638 cells /uL 1500-7 800 normal Not Available [address], [address], 06/06/2023 13:21:00 06/02/2006/06/2023 CBC (INCL UDES DIFF/ PLT) absolute lymphocytes 1638 cells /uL 850-39 00 normal Not Available [address], [address], 06/06/2023 13:21:00 06/02/20 23 06/06/2023 CBC (INCL UDES DIFF/ PLT) absolute monocytes 403 cells /uL 200-95 0 normal Not Available [address], [address], 06/06/2023 13:21:00 06/02/20 23 06/06/2023 CBC (INCL UDES DIFF/ PLT) absolute eosinophils 80 cells /uL 15-500 normal Not Available [address], [address], 06/06/2023 13:21:00 06/02/20 23 06/06/2023 CBC (INCL UDES DIFF/ PLT) absolute basophils 42 cells /uL 0-200 normal Not Available [address], [address], 06/06/2023 13:21:00 06/02/20 23 06/06/2023 CBC (INCL UDES DIFF/ PLT) neutrophils 43.1 % normal Not Available [address], [address], 06/06/2023 13:21:00 06/02/20 23 06/06/2023 CBC (INCL UDES DIFF/ PLT) lymphocytes 43.1 % normal Not Available [address], [address], 06/06/2023 13:21:00 06/02/20 23 06/06/2023 CBC (INCL UDES DIFF/ PLT) monocytes 10.6 % normal Not Available [facility] [address], [address], 06/06/2023 13:21:00 06/02/20 23 06/06/2023 CBC (INCL UDES DIFF/ PLT) eosinophils 2.1 % normal Not Available [address], [address], 06/06/2023 13:21:00 06/02/20 23 06/06/2023 CBC (INCL UDES DIFF/ PLT) basophils 1.1 % normal Not Available [address], [address], 06/06/2023 13:21:00 06/02/20 23 06/06/2023 PSA, TOTAL PSA, total 0.64 NG/mL < or = 4.00 normal The total PSA value from this assay syste m is stand ardiz ed again st the WHO stand kenneth. The test resul t will be appro ximat pamela 20% lower when cosmo red to the equim olar- stand ardiz ed total PSA (Crouch man Coult er). Cosmo rison of seria l PSA resul ts shoul d be inter prete d with this fact in mind. This test was perfo rmed using the Sieme ns chemi lumin escen t metho d. Value s obtai mary jane from diffe rent assay metho ds canno t be used inter benson eably . PSA level s, regar dless of value , shoul d not be inter prete d as absol poarch evide nce of the prese nce or absen ce of disea se. Not Available [facility] [address] [address] , [place], [address], 06/06/2023 13:21:00 06/02/20 23 06/06/2023 TESTO STERO NE, TOTAL , MS testosterone , total, MS 408 NG/dL 250-11 00 For addit ional infor matrodrigo nargenis refer to https ://ed ucati on.qu estdi SEAT 4a tics. com/f aq/To Wilfredo baires LCMSM S (This link is being provi ded for infor matio nal/e ducat ional purpo ses only. ) (Note ) This test was devel lexie and its bradley tical perfo rmanc e marry cteri stics have been deter mined by [employer]. It has not been clear ed or appro landon by the FDA. This assay has been valid ated pursu ant to the CLIA regul ation s and is used for clini reyes purpo ses. MDF med fusio n [address] [facility] [address] [facility] [address] [phone] Chris orozco MD Not Available [facility] [address] [address] , [place], [address], 06/06/2023 13:21:01 Result Notes None recorded. 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 [address], [place], [address] , [facility] [employer] 3 09:05:07 Problem Notes None recorded. Medical Equipment None Reported. Allergies No known drug allergies Medications Name Sig Start Date Stop Date Status Note LastModified by Organization Details LastModified Time citalopram 10 mg tablet TAKE 1 TABLET BY MOUTH EVERY DAY active Not Available Not Available No t Available topiramate 25 mg tablet TAKE 1 TABLET BY MOUTH EVERY DAY 04/01 completed Not Available Not Available Not Available phentermine 37.5 mg tablet TAKE 1 TABLET BY MOUTH EVERY DAY active Not Available Not Available No t Available phentermine 30 mg capsule TAKE 1 CAPSULE BY MOUTH EVERY DAY IN THE MORNING active Not Available Not Available No t Available alprazolam 0.5 mg tablet TAKE 1 TABLET BY MOUTH TWICE DAILY NEEDED active Not Available Not Available No t Available citalopram 20 mg tablet Take 1 tablet every day by oral route at bedtime. 05/06 completed Not Available Not Available Not Available topiramate 50 mg tablet TAKE 1 TABLET BY MOUTH EVERY DAY IN THE EVENING active Not Available Not Available No t Available Flucelvax Quad (PF) 60 mcg (15 mcg x 4)/0.5 mL IM syringe ADM 0.5ML IM UTD active Not Available Not Available No t Available Vitals Date Recorded Body height Body mass index (BMI) Body weight Body temperature Heart rate Respiratory rate Oxygen saturation Oxygen saturation in Arterial blood by Pulse oximetry Systolic blood pressure Diastolic blood pressure Provider Name and Address Organization Details Last Updated DateTime 3 175.26 cm 34.3 kg/m2 097573. 43 g 97.3 [degF] 108 /min 16 /min 97 % 97 % 122 mm[Hg] 80 mm[Hg] Yoon Israel MA [facility] [employer] 3 08:53:49 Date Recorded Systolic blood pressure Diastolic blood pressure Provider Name and Address Organization Details Last Updated DateTime 01/28/2023 110 mm[Hg] 80 mm[Hg] [facility]RETT Blake [address] [facility], [facility] [address], [place], [address], [facility] [employer] [facility] 01/28/2023 09:08:16 Date Recorded Body height Body temperature Body mass index (BMI) Body weight Respiratory rate Heart rate Oxygen saturation Oxygen saturation in Arterial blood by Pulse oximetry Systolic blood pressure Diastolic blood pressure Provider Name and Address Organization Details Last Updated DateTime 3 175.26 cm 97.7 [degF] 32.3 kg/m2 60599.7 3 g 16 /min 100 /min 98 % 98 % 112 mm[Hg] 70 mm[Hg] ROSLYN Ahumada [facility] [employer] [facility] 3 08:48:19 Date Recorded Body height Oxygen saturation Oxygen saturation in Arterial blood by Pulse oximetry Heart rate Respiratory rate Body temperature Systolic blood pressure Diastolic blood pressure Provider Name and Address Organization Details Last Updated DateTime 2 175.26 cm 97 % 97 % 74 /min 16 /min 97.6 [degF] 118 mm[Hg] 78 mm[Hg] Not Available [facility] 3 21:29:44 Date Recorded Body height Body mass index (BMI) Body weight Respiratory rate Oxygen saturation Oxygen saturation in Arterial blood by Pulse oximetry Heart rate Systolic blood pressure Diastolic blood pressure Provider Name and Address Organization Details Last Updated DateTime 3 175.26 cm 32.5 kg/m2 32254.3 2 g 16 /min 98 % 98 % 102 /min 140 mm[Hg] 80 mm[Hg] ROSLYN Ahumada [facility] [employer] [facility] 3 08:36:15 Date Recorded Body mass index (BMI) Body height Oxygen saturation Oxygen saturation in Arterial blood by Pulse oximetry Heart rate Respiratory rate Body temperature Body weight Systolic blood pressure Diastolic blood pressure Systolic blood pressure Diastolic blood pressure Systolic blood pressure Diastolic blood pressure Provider Name and Address Organization Details Last Updated DateTime 2 28.4 kg/m2 175.26 cm 98 % 98 % 76 /min 16 /min 97.6 [degF] 44276.7 4 g 120 mm[Hg] 80 mm[Hg] 100 mm[Hg] 70 mm[Hg] 100 mm[Hg] 70 mm[Hg] Not Available [facility] 3 21:29:44 Social History Question Answer Notes LastModified by Organizat ion Details LastModified Time Tobacco Smoking Status Never Smoker Not Available [facility] 09/15/2022 21:28:47 Do You Have An Advance Directive? No [id number] Information not available 09/15/2022 Do You Wear A Helmet When Biking? Yes [id number] Information not available 09/15/2022 What Is Your Level Of Caffeine Consumption? Moderate [id number] Information not available 09/15/2022 In The 14 Days Before Symptom Onset, Have You Had Close Contact With A Laboratory-confirm ed COVID-19 While That Case Was Ill? No [id number] Information not available 09/15/2022 In The 14 Days Before Symptom Onset, Have You Had Close Contact With A Person Who Is Under Investigation For COVID-19 While That Person Was Ill? No [id number] Information not available 09/15/2022 What Type Of Diet Are You Following? REGULAR [id number].614180 [id number] Information not available 09/15/2022 Have There Been Any Changes To Your Family Or Social Situation? No [id number].[id number] 2132 Information not available 09/15/2022 Are There Any Guns Present In Your Home? No MIGRATION.209148 4831 Information not available 09/15/2022 Do You Use Insect Repellent Routinely? Yes MIGRATION.232671 0808 Information not available 09/15/2022 Do You Have A Medical Power Of [employer] Systems Administrator? No MIGRATION.434008 4838 Information not available 09/15/2022 Have You Ever Been Counseled For Unhealthy Alcohol Use? No MIGRATION.[id number] 1750 Information not available 09/15/2022 What Is Your Relationship Status? [email or web address] Information not available 01/27/2023 Do You Use Your Seat Belt Or Car Seat Routinely? Yes MIGRATION.[id number] 4960 Information not available 09/15/2022 Do You Have Smoke And Carbon Monoxide Detectors In Your Home? Yes MIGRATION.037276 2336 Information not available 09/15/2022 Do You Use Sunscreen Routinely? Yes MIGRATION.340037 9439 Information not available 09/15/2022 Has Tobacco Cessation Counseling Been Provided? No MIGRATION.962796 4214 Information not available 09/15/2022 Have You Recently Traveled Abroad? No MIGRATION.029814 6633 Information not available 09/15/2022 Do You Have Any Dietary Restrictions? No MIGRATION.648977 0170 Information not available 09/15/2022 Sex: Unknown Functional Status Question Answer Note LastModified by Organizat ion Details LastModified Time Do you use any illicit or recreational drugs? No MIGRATION.351527 5671 Information not available 09/15/2022 Do you or have you ever used any other forms of tobacco or nicotine? No MIGRATION.423489 5939 Information not available 09/15/2022 What is your level of alcohol consumption? Occasional MIGRATION.888176 2509 Information not available 09/15/2022 Are you currently employed? 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 Moderate MIGRATION.108597 3686 Information not available 09/15/2022 Mental Status Question Answer Note LastModified by Organizat ion Details LastModified Time Do you feel stressed (tense, restless, nervous, or anxious, or unable to sleep at night)? [id number] Information not available 09/15/2022 Family History Relationship Description Onset Age of this Age Resolved Age Notes LastModified by Organization Details LastModified Time Maternal Grandmother Malignant tumor of breast [id number] Not available 09/15/2022 21:28:58 Mother Malignant tumor of breast [id number] Not available 09/15/2022 21:28:58 Father Neuroendocri ne carcinoma MIGRATION.[id number] Not available 09/15/2022 21:28:58 Paternal Grandmother Diabetes mellitus MIGRATION.179 [id number] Not available 09/15/2022 21:28:58 Medical History No medical history recorded. Immunizations Vaccine Type Date Status Note Provider Nam e and Address Organization Details Recorded Time COVID-19, mRNA, LNP-S, PF, 30 mcg/0.3 mL dose 1 completed Not Available [facility] 09/15/2022 21:31:19 COVID-19, mRNA, LNP-S, PF, 30 mcg/0.3 mL dose 1 completed Not Available [facility] 09/15/2022 21:31:19 Influenza, split virus, quadrivalent, preservative 1 completed Not Available [facility] 09/15/2022 21:31:20 COVID-19, mRNA, LNP-S, PF, 30 mcg/0.3 mL dose 1 completed [facility] Available [facility] 09/15/2022 21:31:20 Hep A, adult 3 completed GARRETT Blake [address] [facility], [facility] [address], [place], [address], [place] - [facility] 02/14/2023 14:00:39 Past Encounters Encounter ID Performer Location Encounter Start Date Encounter Closed Date Diagnosis/Indication Diagnosis SNOMED-CT Code Diagnosis ICD10 Code Diagnosis Note [id number] GARRETT Blake [facility] [place] [address] [place], [place] [address] 04/02/2021 00:00:00 04/05/2021 21:35:54 [id number] GARRETT Blake [facility] [address] [place] [address] 04/19/2022 00:00:00 05/17/2022 20:16:56 [id number] GARRETT Blake [facility] [address] [place] [address] 05/24/2022 00:00:00 05/24/2022 10:28:28 [id number] GARRETT Blake [facility] [address] [place] [address] 11/26/2022 08:46:20 11/26/2022 09:37:16 Generalized anxiety disorder 21569705 F41.1 stable on citalopram and alprazolam Hyperlipidemia 59163223 E78.5 pt is managing with diet and exercise. Body mass index 30+ - obesity 171967232 Z68.34 start phentermin e and topamax course [id number] GARRETT Blake [facility] [address] [place] [address] 01/28/2023 08:32:58 01/28/2023 09:18:28 Body mass index 30+ - obesity 683687132 Z68.34 continue phentermin e and topamax course Hyperlipidemia 26734591 E78.5 pt is managing with diet and exercise. Endocrine/ metabolic screening 950313893 Z13.228 testostero ne labs due on next check Long-term drug therapy 195676408 Z79.899 CMP and TFTs due on next labs Easy bruising [id number] R58 check CBC and PT/INR/PTT Screening for malignant neoplasm of prostate 496453062 Z12.5 PSA on next labs due Diabetes m ellitus screening 120608280 Z13.1 screening a1c on next labs. Requires a hepatitis A vaccination 640165428 Z28.39 hep A vaccine today [id number] GARRETT Blake [facility] [address] [place] [address] 05/06/2023 08:23:53 05/06/2023 09:01:47 Hyperlipidemia 64683643 E78.5 pt is managing with diet and exercise. Body mass index 30+ - obesity 252532377 Z68.34 continue phentermin e and topamax course Long-term drug therapy 911858629 Z79.899 Adult [facility] th examination 140954296 Z00.01 well exam Health Concerns Section Related Observation LastModified by Organization Detai ls LastModified Time None Recorded Concern Status LastModified by Organization Details LastModified Time None Recorded Advance Directives Directive N: Payers Encounter Date Sequence Insurance Name Policy Number Policy López Covered Member ID López Member ID Guarantor Name 11/26/2022 1 [employer] [id number] 9 Shyam Preciado [id number] Shyam Preciado 01/28/2023 1 [employer] [id number] 9 Shyam Preciado [id number] Shyam Preciado 05/06/2023 1 [employer] [id number] Shyam Preciado [id number] Shyam Preciado Notes Date Note Type Note Provider Name and Address Organization Details Recorded Time 04/19/20 22 text/htm l Generic HPI TemplateReported bypatient.Notes:Pt is here to have a wellness. No chronic problems/medications. He has a physical form in the room as well.pt does report recent weight gain. Not Available [place] [facility] [employer] 05/17/2022 20:16:56 11/07/20 22 text/htm l Anxiety/DepressionReported bypatient.Quality:symptoms worse in the evening; and in the morning Severity:denies suicidal ideations; able to maintain relationships;interference with sleep Duration:symptoms lasting over 2 weeks Onset/Timing:still present Context:major life stressors Modifying Factors:medications as directed Associated Symptoms:denies homicidal ideations; no significant weight gain; no significant weight loss; no visual/auditory hallucinations; no delusions; no shortness of breath; no crying spells; no panic; no isolation; appetite good; energy good; no apathy; maintaining functionality;anxiety;insomnia; sleep disturbances; grinding teethNotes:He is here for a f/u on the citalopram. He says it is helping. Not Available [employer] 05/24/2022 10:28:28 11/27/19 23 text/htm l Anxiety, Generalized DisorderReported bypatient.Onset/Timing:months Severity:moderate Context:life stressors Associated Symptoms:no difficulty swallowing; no palpitationsNotes:stable on citalopram and alprazolam pt would like to start weight loss medication tx plan. GARRETT Blake [address] [facility], [address] [address], [place], [address], [employer] 12/15/2022 22:36:57 01/29/20 23 text/htm l Generic HPI TemplateReported bypatient.Notes:Pt is here to f/u on phentermine. He isnt have any problems w/it. GARRETT Blake [address] [facility], [place], [address], [employer] 02/14/2023 14:01:14 05/06/20 23 text/htm l Anxiety/DepressionReported bypatient.Quality:symptoms worse in the evening Severity:denies suicidal ideations; able to maintain relationships;interference with sleep Duration:symptoms lasting over 2 weeks Onset/Timing:still present Context:no major life stressors Associated Symptoms:denies homicidal ideations; no significant weight gain; no significant weight loss; no visual/auditory hallucinations; no delusions; no shortness of breathHyperlipidemiaReported bypatient.Duration:chronic Control:usually well controlled Compliance:compliant;noncomplia nt with diet;does not exercise Complications:no coronary artery disease; no peripheral artery disease; no cardiovascular disease Wellness GARRETT Blake [address] [facility], [facility] [address], [place], [address], [place] [employer] [facility] 05/09/2023 15:50:44
--- OUTSIDE RECORDS SUMMARY | 2024-12-21 01:15 | XMS_ITS | Data Portability ---
Author Organization SUNDE[place] DOMONIQUERaj Ng Address [address] [place] [address] Care Team Providers Care Lace Weaver Name Role Phone DIVYA PERDOMO Primary Care Provider Unavailab le Assessment Encounter Date Assessment Date Assessment LastModified by Organization Details LastModified Time 05/30/2024 05/30/2024 fam hx of neuroendocrine in his father. was stage 4 at dx. passed after 6 months. Not available 05/30/2024 11:38:53 Plan of Treatment Reminders Order Date Submit Date Provider Last Modified By Organization Details Last Modified Time Details Appointments None recorded. Lab TSH + free T4, serum 2023 024 [email or web address] [facility], [address], [place], [address], 5 16:46:30 lipid panel, serum 2023 024 [facility], [address], [place], [address], 4 11:05:25 CBC w/ auto diff 2023 024 [facility], [address], [place], [address], 4 11:05:41 CMP, serum or plasma 2023 024 [facility], [address], [place], [address], 4 11:05:46 vitamin B12 + folate, serum or blood 2023 024 [facility] [facility], [address], [place], [address], 4 11:05:12 PSA, serum or plasma 2023 024 [facility], [address], [place], [address], 4 11:05:36 testostero ne, total, serum 2023 024 [facility], [address], [place], [address], 4 11:05:51 HbA1c (hemoglobi n A1c), blood 2023 024 [facility], [address], [place], [address], 4 11:05:31 insulin, serum 2023 024 [facility] [employer] [facility], [address], [place], [address], 4 11:05:19 Referral None recorded. Procedures colonoscop y screening (PROC) 2023 024 [facility], [address], [address], [place], [address], 5 16:10:51 Surgeries None recorded. Imaging None recorded. Medication Orders primidone 50 mg tablet 2024 025 [id number], [address], [place], [place], [id number], 5 10:43:51 buspirone 5 mg tablet 2024 025 [id number], [address], [place], [place], [id number], 5 10:43:54 Virtussin AC 10 mg-100 mg/5 mL oral liquid 2023 [facility] #09322, [address], [place], [place], [id number], 5 10:09:53 benzonatat e 200 mg capsule 2023 [facility] #66148, [address], [place], [place], [id number], 5 10:10:01 prednisone 20 mg tablet 2023 [facility] #62288, [address], [place], [place], [id number], 5 10:09:49 amoxicilli n 875 mg-potassi um clavulanat e 125 mg tablet 2023 [facility] #13407, [address], [place], [place], [id number], 5 10:09:52 Patient TargetsNo targets recorded. Patient Instructions Encounter Date Encounter Id Patient Instructions Last Modified By Organization Details Last Modified Time 05/30/2024 [id number] A healthy lifestyle: care instructions Not available 05/30/2024 11:49:22 09/03/2024 [id number] A healthy lifestyle: care instructions Not available 09/03/2024 10:43:06 Reason for Referral None Reported. Results Created Date Observation Date Name Description Value Unit Range Abnormal Flag Note LastModifiedBy Organization Detail LastModifiedTime Result Notes None recorded. Problems Name Problem SNOMED Code Status Onset Date Resolution Date Notes Provider Name and Address Organization Details Recorded Time Body mass index 30+ - obesity 243394430 Active 2023 Sima Miller MA null, [place] - [facility] 4 11:23:08 Obesity 172084897 Active 2023 GARRETT Blake Attn: Annika g,[address] [facility], [place], [address], [place] [facility] 4 11:29:31 Long-term drug therapy Active 2023 GARRETT Blake Attn: Accountgiuseppe g,[address] [facility], [place], [address], [place] [facility] 4 16:11:02 Positive screening for depression on PHQ-9 (Patient Health Questionnai re 9) 7549194564683 00 Active 2023 GARRETT Blake Attn: Accountin g,[address] [facility], [place], [address], [place] [facility] 4 16:11:03 Anxiety 53775224 Active 2023 GARRETT Blake Attn: Accountin g,[address] [facility], [place], [address], [place] [facility] 4 16:11:39 Generalized anxiety disorder 34310899 Active 2024 GARRETT Blake Attn: Accountin g,[address] [facility], [place], [address], [place] [facility] 5 19:18:37 Depressive disorder 71006575 Active 2024 GARRETT Blake Attn: Accountin g,[address] [facility], [place], [address], [place] [facility] 5 19:18:38 Tremor 49223535 Active 2024 GARRETT Blake Attn: Accountin g,[address] [facility], [place], [address], [place] [facility] 5 19:19:09 Erectile dysfunction 787304571 Active 2024 GARRETT Blake Attn: Accountin g,[address] [facility], [place], [address], [place] [facility] 5 19:19:22 Headache disorder 461283684 Active 2024 GARRETT Blake Attn: Annika disla,[address] [facility], [place], [address], [facility] 19:19:34 Problem Notes None recorded. Medical Equipment None Reported. Allergies No known drug allergies Medications Name Sig Start Date Stop Date Status Note LastModified by Organization Details LastModified Time buspirone 5 mg tablet TAKE 1 TABLET BY MOUTH TWICE DAILY 2024 active Not Available Not Available Not Avai lable primidone 50 mg tablet TAKE 2 TABLETS BY MOUTH EVERY DAY active Not Available Not Available No t Available benzonatate 200 mg capsule 09/03 completed Not Available Not Available Not Available prednisone 20 mg tablet Take 2 tablets every day by oral route for 5 days. 09/03 completed Not Available Not Available Not Available topiramate 25 mg tablet TAKE 1 TABLET BY MOUTH EVERY DAY 05/30 completed Not Available Not Available Not Available phentermine 37.5 mg tablet Take 1 tablet every day by oral route. 05/30 completed Not Available Not Available Not Available phentermine 30 mg capsule TAKE 1 CAPSULE BY MOUTH EVERY DAY IN THE MORNING 10/02 completed Not Available Not Available Not Available alprazolam 0.5 mg tablet Take 1 tablet every day by oral route as needed for 6 days. active when he flies Not Available Not Available Not Available codeine 10 mg-guaifene sin 100 mg/5 mL oral liquid 09/03 completed Not Available Not Available Not Available amoxicillin 875 mg-potassiu m clavulanate 125 mg tablet Take 1 tablet every 12 hours by oral route. 09/03 completed Not Available Not Available Not Available tadalafil 10 mg tablet Take 1 tablet every day by oral route. active 8.5mg Not Available Not Available No t Available topiramate 50 mg tablet TAKE 1 TABLET BY MOUTH EVERY DAY IN THE EVENING 05/30 completed Not Available Not Available Not Available [employer]axNOW COVID-19 Ag Self Test kit 09/03 completed Not Available Not Available Not Available Vitals Date Recorded Body height Body mass index (BMI) Body weight Oxygen saturation Oxygen saturation in Arterial blood by Pulse oximetry Heart rate Respiratory rate Systolic blood pressure Diastolic blood pressure Provider Name and Address Organization Details Last Updated DateTime 5 175.26 cm 35.7 kg/m2 815382. 35 g 99 % 99 % 100 /min 18 /min 126 mm[Hg] 82 mm[Hg] Sima Miller MA [facility] 5 10:13:58 Date Recorded Systolic blood pressure Diastolic blood pressure Systolic blood pressure Diastolic blood pressure Provider Name and Address Organization Details Last Updated DateTime 05/30/2024 120 mm[Hg] 90 mm[Hg] 120 mm[Hg] 90 mm[Hg] GARRETT Blake Attn: Accounting ,[address] [facility], [place], [address] , [facility] 4 11:50:01 Date Recorded Body weight Respiratory rate Body mass index (BMI) Body height Oxygen saturation Oxygen saturation in Arterial blood by Pulse oximetry Heart rate Systolic blood pressure Diastolic blood pressure Provider Name and Address Organization Details Last Updated DateTime 4 071195. 76 g 18 /min 35.6 kg/m2 175.26 cm 99 % 99 % 89 /min 108 mm[Hg] 72 mm[Hg] Sima Miller MA [facility] 4 11:25:52 Date Recorded Body height Body mass index (BMI) Body weight Oxygen saturation Oxygen saturation in Arterial blood by Pulse oximetry Heart rate Systolic blood pressure Diastolic blood pressure Provider Name and Address Organization Details Last Updated DateTime 4 175.26 cm 34.7 kg/m2 085518. 21 g 97 % 97 % 101 /min 126 mm[Hg] 82 mm[Hg] Sima Miller MA [facility] 4 09:33:49 Social History Question Answer Notes LastModified by Organizat ion Details LastModified Time Tobacco Smoking Status Never Smoker Sima Miller MA null, [facility] 05/30/2024 11:22:29 Do You Have An Advance Directive? No Information not available 05/30/2024 Are You Blind Or Do You Have Difficulty Seeing? No Glasses Information not available 05/30/2024 What Is Your Level Of Caffeine Consumption? Moderate Daily Information not available 05/30/2024 In The 14 Days Before Symptom Onset, Have You Had Close Contact With A Laboratory-confir med COVID-19 While That Case Was Ill? No Information not available 05/30/2024 In The 14 Days Before Symptom Onset, Have You Had Close Contact With A Person Who Is Under Investigation For COVID-19 While That Person Was Ill? No Information not available 05/30/2024 Have You Been To An Area Known To Be High Risk For COVID-19? No Information not available 05/30/2024 Are You Deaf Or Do You Have Serious Difficulty Hearing? No Information not available 05/30/2024 What Type Of Diet Are You Following? REGULAR Information not available 05/30/2024 Are There Any Guns Present In Your Home? No Information not available 05/30/2024 What Was The Date Of Your Most Recent Tobacco Screening? 09/03/2024 Information not available 09/03/2024 What Is Your Relationship Status? Information not available 05/30/2024 Do You Use Your Seat Belt Or Car Seat Routinely? Yes Information not available 05/30/2024 Do You Have Smoke And Carbon Monoxide Detectors In Your Home? Yes Information not available 05/30/2024 Do You Use Sunscreen Routinely? Yes Information not available 05/30/2024 Has Tobacco Cessation Counseling Been Provided? No Information not available 05/30/2024 Sex: Unknown Functional Status Question Answer Note LastModified by Organizat ion Details LastModified Time Do you use any illicit or recreational drugs? No Information not available 05/30/2024 Do you or have you ever used any other forms of tobacco or nicotine? No Information not available 05/30/2024 What is your level of alcohol consumption? Occasional Information not available 05/30/2024 Are you currently employed? Yes Information not available 05/30/2024 Are you able to care for yourself? Yes Information n ot available 05/30/2024 What is your exercise level? Occasional Information not available 09/03/2024 Mental Status Question Answer Note LastModified by Organization D etails LastModified Time Do you feel stressed (tense, restless, nervous, or anxious, or unable to sleep at night)? [id number] Information not available 05/30/2024 Family History Relationship Description Onset Age of this Age Resolved Age Notes LastModified by Organization Details LastModified Time Mother Family history of breast cancer tcarterma Not available 2023 11:22:43 Father Malignant neoplastic disease tcarterma Not available 2023 11:22:58 Medical History No medical history recorded. Past Encounters Encounter ID Performer Location Encounter Start Date Encounter Closed Date Diagnosis/Indication Diagnosis SNOMED-CT Code Diagnosis ICD10 Code Diagnosis Note [id number] Roe Stoner [facility] [address] [place] [address] 05/30/2024 11:13:11 05/30/2024 13:19:54 Body mass index 30+ - obesity 799143047 Z68.35 BMI is 35.6, fasting insulin ordered for annual review Obesity 929944796 E66.9 discussed healthy diet, exercise, controllin g carbohydra danny and added sugars in the diet Adult heal th examination 631088090 Z00.00 Annual wellness exam completed Cholesterol screening 27 5062490 Z13.220 Fasting lipid panel due Diabetes m ellitus screening 315631643 Z13.1 Annual A1c screening due Screening for malignant neoplasm of prostate 337631674 Z12.5 Yearly PSA level due Thyroid di sorder screening 096964864 Z13.29 Routine thyroid function testing due Positive s creening for depression on PHQ-9 (Patient Health Questionnaire 9) 3986068601 77610 Z13.31 14 score, patient is not interested in starting any daily medication therapy at this time for his anxiety Long-term drug therapy 296184808 Z79.891 cmp, cbc and b12, folate labs are due Endocrine/ metabolic screening 054109414 Z13.228 Screening testostero ne requested Screening for malignant neoplasm of colon 537272787 Z12.11 Refer for baseline colonoscop y when he reaches 44 and February Anxiety 64880853 F41.9 Patient does have underlying anxiety. He does take some alprazolam when he flies to manage flight anxiety. [id number] Roe Stoner MD [facility] [address] [place] [address] 06/28/2024 09:23:57 06/28/2024 11:25:19 Upper respiratory infection 84201520 J06.9 Start prednisone 40 mg daily for 5 days and Augmentin 875 twice daily for 7 days Cough 96674678 R05.9 Start Robitussin AC 10 mL as needed at bedtime and Tessalon Perles 200 mg 3 times daily [id number] Roe Stoner MD [facility] [address] [place] [address] 09/03/2024 10:05:06 09/03/2024 10:45:39 Body mass index 30+ - obesity 718010231 Z68.35 BMI is 35.7 Obesity 789306115 E66.9 discussed healthy diet, exercise, controllin g carbohydra danny and added sugars in the diet Positive s creening for depression on PHQ-9 (Patient Health Questionnaire 9) 3203990917 59196 Z13.31 14 score, patient is not interested in starting any daily medication therapy at this time for his anxiety Tremor 37646390 R25.1 Trial of primidone 50 mg if he tolerates this well with some improvemen t we will titrate the dose up Generalize d anxiety disorder 18016439 F41.1 Trial of BuSpar 5 mg twice daily for generalize d anxiety disorder without negative effects of SSRI therapy on ED. patient also has alprazolam which is only used prior to airplane travel Depressive disorder 3548 9007 F32.A At this time stable not on any dedicated SSRI therapy. Headache disorder 103908 009 R51.9 Patient is taking over-the-c ounter Tylenol and or ibuprofen as needed with headache flare-ups. Erectile dysfunction 860 744558 F52.21 Tadalafil compounded 8.5 mg daily from alternate provider source Health Concerns Section Related Observation LastModified by Organization Detai ls LastModified Time None Recorded Concern Status LastModified by Organization Details LastModified Time None Recorded Advance Directives Directive N: Payers Encounter Date Sequence Insurance Name Policy Number Policy López Covered Member ID López Member ID Guarantor Name 05/30/2024 1 [facility] (PPO) [id number] Ponce Preciado [id number] Ponce Preciado 06/28/2024 1 [facility] (PPO) [id number] Ponce Preciado [id number] Ponce Preciado 09/03/2024 1 [facility] (PPO) [id number] Ponce Preciado [id number] 31 Ponce Preciado Notes Date Note Type Note Provider Name and Address Organization Details Recorded Time 4 text/html Anxiety/DepressionReport ed bypatient.Notes:Patient has underlying anxiety and does take p.r.n. alprazolam mostly when he flies. Patient does have some underlying mild erectile dysfunction and takes tadalafil on a p.r.n. basis. GARRETT Blake Attn: Accounting,[address] [place], [address], [facility] 06/15/2024 16:11:59 4 text/html Upper Respiratory SymptomsReported bypatient.Location:head; chest Quality:productive cough;colored phlegm;congested Severity:mild Onset/Timing:sudden Context:no foreign travel; non-smoker;sick contact Modifying Factors:OTC medication; salt water gargles Associated Symptoms:yellow-green, thick sputum;yellow sputum;fatigue GARRETT Blake Attn: Accounting,[address] [facility], [place], [address], [facility] 07/15/2024 20:24:21 5 text/html Anxiety/DepressionReport ed bypatient.Notes:Claim for the [facility] is regarding primarily mental health: He had NO mental health issues until after time. He did seek counseling therapy from [facility], and there was the start of talks about possible PTSD but this therapy ended because his counselor left and he didn't find new provider. He is interested in [place] medical coverage for evaluation and management in mental health topics: Anxiety primary but mixed with some depression: has only alprazolam for flight, but does not take prescriptive options for anxiety and depression on daily basis. He does take herbal option ashwagandha. He started that 1 month ago. NO changes noticed yet. He is interested in non-ssri or non-snri option to try first.Erectile DysfunctionReported bypatient.Notes:E.DJose the last few years has been symptomatic; has been on tadalafil for around 9 months, taking daily. Does have some symptom improvement on medication. He does have connection with mental health triggering E.D.Generic HPI TemplateReported bypatient.Notes:Tremor: Onset in early 20's (after ) (approx 3288-5509 time frame). Both hands symptomatic, occurs all the time, more noticeable when intentional. He did try inderal and metoprolol in the past. Inderal was too costly years ago. He had side effects from beta saurav metoprolol. He is interested in trying alternate option, as the tremor is very symptomatic for him.HeadacheReported bypatient.Notes:Onset: age [age]. After time in , but he remembers having migraines during [employer] classes and having to get home to treat them. These migraines occur weekly. later afternoon onset weekly. He does notice first symptoms and takes Excederin migraine and takes soon to help treat. He can close door, turn off light and rest at work sometimes. Sometimes he has to go home and rest. He does rarely have nausea/vomiting with episodes. Light and sound sensitivity. Also takes OTC meds like ibuprofen or tylenol. Pain in located in temporal region often bilateral. Pt needs Divya's credentials, his medical history, dx's and current symptoms, explanation of how sx's relate to dx, and an explanation of how sx's affect daily life for each diagnosis. He will also need documentation of supporting evidence, medical rationale, and medical opinion for each diagnosis. For disability claim.Pt has the following diagnoses- ED, tremor of hands, migraine headaches, overall mental health/anxiety/depressio n. Patient was in [employer] from December 1997-. Honorable discharge for Personality Disorder diagnosis. Mental health screening completed online via [facility] .In person assessment completed from contracted provider last week. Forms were completed.Hearing exam completed last week as well. GARRETT Blake Attn: Accounting,[address] [facility], [place], [address], [facility] 09/16/2024 19:20:07
[2024-12-21 06:15] VITALS: BP 117/87; PULSE 88; TEMP 36; O2SAT 100; BMI 34.8
[2024-12-21] MEDS: LACTATED RINGERS 1,000 ML 150 ML IV CONT (06:34)
--- NOTE | 2024-12-21 07:01 | WPDANESEPPF ---
Anes - Initial Pre Proc Eval Procedure: Operation Date: 12/21/24 07:30 Proposed Procedures p Screening Colonoscopy - Lm Saenz MD Date/Time: 12/21/24 07:01 Surgeon: Lm Saenz MD Pre Op Diagnosis: Screening Patient Data Age: 44 Gender: M Height: 1.75 m Weight: 107 kg Last Vital Signs Temp 36.0 C L 12/21/24 06:15 Pulse 88 12/21/24 06:15 BP 117/87 12/21/24 06:15 Pulse Ox 100 12/21/24 06:15 O2 Del Method Room Air 12/21/24 06:15 Allergies Allergy/AdvReac Type Severity Reaction Status Date / Time No Known Allergies Allergy Verified 12/11/24 14:58 Home Medications ?Medication ?Instructions ?Recorded ?Confirmed ?Type alprazolam 0.5 mg tablet 1 mg PO BID 12/11/24 12/21/24 History buspirone 5 mg tablet 5 mg PO BID 12/11/24 12/21/24 History primidone 50 mg tablet 50 mg PO Q12H 12/11/24 12/21/24 History Patient hx anesthesia problems: none Family hx anesthesia problems: none Results Review: All pre-operative results and documents have been reviewed as part of the pre-operative evaluation. [facility] Past Medical History Medical History (Updated 12/21/24 @ 07:01 by Isma Guevara MD) Anxiety Obesity Social History Social History Smoking status: Never smoker Alcohol intake: current Drinks per week: 4 Substance use type: does not use Living arrangements: with family Additional living arrangements comments: with sp Anes - Eval Final PreProcedure Day of Procedure 12/21/24 07:01 Patient weight: obese Heart: regular rate and rhythm Lungs: clear to auscultation Airway: Mallampati scale class II Neurological: alert and oriented Last oral intake: >/= 8 hours ASA classification: II Emergent: no Anesthetic plan: proceed Anesthesia type and monitoring: general GIVS and standard monitoring Results Review: All pre-operative results and documents have been reviewed as part of the pre-operative evaluation. Informed Consent: The patient's anesthetic plan and its attendant risks and benefits were discussed with the patient/family/POA. Questions were solicited and answers provided to the satisfaction of the patient/family/POA.
--- NOTE | 2024-12-21 07:29 | PM.IMHP ---
H&P: HPI History of Present Illness Date/Time: 12/21/24 07:29 Chief Complaint: screening colonoscopy Narrative: This is the first patient's colonoscopy. There is no family history of colorectal cancer. Review of Systems Review of Systems: All systems reviewed & are unremarkable except as noted in HPI and below PMFSH Past Medical History Medical History (Updated 12/21/24 @ 07:31 by Lm Saenz MD) Anxiety Obesity Social History Social History Smoking status: Never smoker Alcohol intake: current Drinks per week: 4 Substance use type: does not use Living arrangements: with family Additional living arrangements comments: with sp Meds Home Medications and Allergies Home Medications ?Medication ?Instructions ?Recorded ?Confirmed ?Type alprazolam 0.5 mg tablet 1 mg PO BID 12/11/24 12/21/24 History buspirone 5 mg tablet 5 mg PO BID 12/11/24 12/21/24 History primidone 50 mg tablet 50 mg PO Q12H 12/11/24 12/21/24 History Allergies Allergy/AdvReac Type Severity Reaction Status Date / Time No Known Allergies Allergy Verified 12/11/24 14:58 Vital Signs Vital Signs - 24 hr 12/21/24 06:15 Temperature 96.8 F L Pulse Rate 88 Blood Pressure 117/87 Pulse Oximetry 100 Oxygen Delivery Room Air Exam Const: General: cooperative and healthy appearing Resp: Effort & Inspection: normal respiratory effort and able to speak in complete sentences Auscultation: clear to auscultation bilaterally Cardio: Rate: regular rate Rhythm: regular rhythm GI: Inspection: normal to inspection GI Palp: No No hepatosplenomegaly present Auscultation: normal bowel sounds Rectal Exam: deferred Skin: General skin exam: normal color Psych: Appearance: grossly normal Mental Status: mental status grossly normal Assessment and Plan Assessment and plan (1) Encounter for screening colonoscopy: Code(s): Z12.11 - Encounter for screening for malignant neoplasm of colon Status: Acute Assessment and Plan: Patient is deemed a good candidate for colonoscopy. Consent signed, will proceed.
[2024-12-21 07:49] VITALS: BP 109/77; PULSE 79; RESP 18; O2SAT 97
[2024-12-21 07:59] VITALS: BP 115/80; PULSE 64; RESP 16; O2SAT 99
[2024-12-21 08:09] VITALS: BP 118/88; PULSE 65; RESP 20; O2SAT 100
== END 2024-12-21 08:19 | disposition home or self-care (01) ==
PROVIDERS: PCP Physician Assistant; Referring Provider Physician Assistant; Visit Provider Internal Medicine Gastroenterology
PROC: 0DJD8ZZ Inspection of Lower Intestinal Tract, Via Natural or Artificial Opening Endoscopic (ICD-10-PCS; CPT 45378; principal; 2024-12-21 07:30)
DX: Z12.11 Encounter for screening for malignant neoplasm of colon (principal); E66.9 Obesity, unspecified; Z68.34 Body mass index [BMI] 34.0-34.9, adult
CPT/HCPCS: 45378; J2003; J2704; J7120